=== PATIENT | female | born 1960 | race Caucasian/White ===

== ENCOUNTER 2021-03-31 04:37 | Day surgery (SDC) | payer OTHER ==
[2021-03-30 11:49] VITALS: BMI 16.5
[2021-03-31 11:06] VITALS: TEMP 98
[2021-03-31 12:03] VITALS: BP 130/63; PULSE 71
== END 2021-03-31 12:15 | disposition home or self-care (01) ==
LOC: JASU-ENDO 04:37
PROVIDERS: ATTEND Internal Medicine Gastroenterology
PROC: 0DBL8ZX Excision of Transverse Colon, Via Natural or Artificial Opening Endoscopic, Diagnostic (ICD-10-PCS; 2021-03-31)
PROC: 0DBN8ZX Excision of Sigmoid Colon, Via Natural or Artificial Opening Endoscopic, Diagnostic (ICD-10-PCS; 2021-03-31)
PROC: 0DBH8ZX Excision of Cecum, Via Natural or Artificial Opening Endoscopic, Diagnostic (ICD-10-PCS; principal; 2021-03-31 10:36)
DX: Z12.11 Encounter for screening for malignant neoplasm of colon (principal); D12.0 Benign neoplasm of cecum; D12.3 Benign neoplasm of transverse colon; D12.5 Benign neoplasm of sigmoid colon; K64.8 Other hemorrhoids; K59.89 Other specified functional intestinal disorders; R10.32 Left lower quadrant pain
CPT/HCPCS: 88305-TC

== ENCOUNTER 2024-08-30 07:09 | Day surgery (SDC) | payer OTHER ==
[2024-08-16 13:21] VITALS: BMI 17.9
[2024-08-30 08:38] VITALS: TEMP 98.4
[2024-08-30 08:55] VITALS: RESP 18
[2024-08-30 09:30] VITALS: BP 115/68; PULSE 76
== END 2024-08-30 09:44 | disposition home or self-care (01) ==
LOC: JASU-ENDO 07:09
PROVIDERS: ATTEND Internal Medicine Gastroenterology
PROC: 0DBL8ZX Excision of Transverse Colon, Via Natural or Artificial Opening Endoscopic, Diagnostic (ICD-10-PCS; 2024-08-30)
PROC: 0DBP8ZX Excision of Rectum, Via Natural or Artificial Opening Endoscopic, Diagnostic (ICD-10-PCS; principal; 2024-08-30 08:00)
DX: Z12.11 Encounter for screening for malignant neoplasm of colon (principal); D12.8 Benign neoplasm of rectum; K63.5 Polyp of colon; K64.8 Other hemorrhoids; K59.89 Other specified functional intestinal disorders; Z86.0100 Personal history of colon polyps, unspecified
CPT/HCPCS: 88305-TC